=== PATIENT | male | born 2000 | race Two or more races ===

== ENCOUNTER 2020-06-19 05:35 | Emergency (ER) | payer MEDICAID, OTHER ==
[~2020-06-19] VITALS: Ht 175.3 cm; Wt 63.5 kg
[2020-06-19 06:38] VITALS: BP 132/79
== END 2020-06-19 07:50 | disposition home or self-care (01) ==
LOC: ER 05:35
DX: T16.2XXA Foreign body in left ear, initial encounter (principal); X58.XXXA Exposure to other specified factors, initial encounter; Y93.89 Activity, other specified; Y92.89 Other specified places as the place of occurrence of the external cause; Y99.8 Other external cause status
CPT/HCPCS: 69200